=== PATIENT | male | born 1955 | race Caucasian/White ===

== ENCOUNTER → 2019-01-13 | Outpatient (CLI) | payer OTHER ==
[~2019-01-13] MED LIST: ADVACOR PO; BENA40TA3 PO; BENEFIBER PO; CHOL20002 PO; CO Q 10 PO; DIGO125T PO; ENOX80SY5 SQ; FLEC150T PO; GABA-827 PO; HYDROCHLOROTHIAZIDE PO; MAGNESIUM PO; MULT-717 PO; REGADENOSON 0.4 MG/5 ML SYRINGE ONE; RIVA20TA PO; TRAZ50TA66 PO; VITA1CAP PO
== END | disposition home or self-care (01) ==
LOC: CFH 10:42
PROVIDERS: ATTEND Internal Medicine Cardiovascular Disease
DX: I34.0 Nonrheumatic mitral (valve) insufficiency (principal); I10 Essential (primary) hypertension; I48.0 Paroxysmal atrial fibrillation
CPT/HCPCS: 78452; 93017; 93306; A9502; J2785